=== PATIENT | female | born 1950 | race Caucasian/White ===

== ENCOUNTER 2025-08-26 13:52 | Outpatient (CLI) | payer MEDICARE ==
--- NOTE | 2025-08-26 19:02 | RADIOLOGY REPORT ---
EXAM: MR MRI UPPER EXTREMITY RIGHT INDICATION: PAIN IN RIGHT SHOULDER TECHNIQUE: Multiplanar, multisequence MR images of the right shoulder were obtained in the absence of gadolinium contrast material. COMPARISON: None FINDINGS: [CORACOACROMIAL ARCH]: Moderate degenerative change of the acromioclavicular joint. Intact coracoclavicular ligaments. Intact coracoacromial ligaments. Mild amount of subacromial/subdeltoid bursal distention. [ROTATOR CUFF]: Massive superior rotator cuff tear with proximal retraction 1 cm distal to the glenoid articular surface. [id number] tendinosis of the subscapularis tendon. Underlying interstitial tearing not excluded. [BICEPS TENDON]: Suspected high-grade longitudinal split tear with subsequent attritional thinning of the long head of the biceps tendon with possible distal retraction and poor visualization in the intertubercular groove. [LABRUM]: Intact. [CARTILAGE]: No measurable cartilage defect. [GLENOHUMERAL JOINT]: Small glenohumeral joint effusion. Axillary pouch thickening with significant thickening of the anterior inferior glenohumeral ligament. Correlate for sequelae of adhesive capsulitis versus prior injury. No intra-articular body. [BONES]: No acute fracture, osseous contusion, or aggressive focal osseous lesion. [MUSCLES]: Normal muscle bulk of the rotator cuff muscles. [NEUROVASCULAR/LYMPH NODES]: Normal. [OTHER]: None. IMPRESSION: 1. Massive superior rotator cuff tear with proximal retraction of the supraspinatus and infraspinatus tendons. 2. High-grade longitudinal split tear with subsequent attritional thinning of the long head of the biceps tendon with possible distal retraction and poor visualization in the intertubercular groove. 3. Axillary pouch thickening with significant thickening of the anterior inferior glenohumeral ligament. 4. Correlate for sequelae of adhesive capsulitis versus prior injury.
== END 2025-08-26 23:59 | disposition home or self-care (01) ==
LOC: MRI02 13:52
PROVIDERS: ATTEND Hospitalist
DX: M75.101 Unspecified rotator cuff tear or rupture of right shoulder, not specified as traumatic (principal); M25.511 Pain in right shoulder; M75.01 Adhesive capsulitis of right shoulder
CPT/HCPCS: 73221